=== PATIENT | male | born 1995 | race Caucasian/White ===

== ENCOUNTER 2016-05-31 13:57 | Emergency (ER) | payer BC, OTHER ==
[~2016-05-31] VITALS: Ht 175.3 cm; Wt 91.0 kg
[~2016-05-31 13:57] MED LIST: LAMICTAL100 MG PO; SEROQUEL200 MG PO; SERTRALINE HCL100 MG PO; TESTONE CI200 MG/1 M IM
[2016-05-31 15:20] LABS: HEMATOCRIT 41.9 % (38.0-50.0); MCH 28.6 PG (29.0-34.0); MCHC 33.4 G/DL (30.0-36.0); MCV 85.7 FL (86-99); MEAN PLAT.VOLUME 11.9 uM^3 (9.0-12.4); PLATELET COUNT 159 K/uL (156-360); RBC DIS.WIDTH-CV 13.8 % (11.8-14.6); RBC DIS.WIDTH-SD 43.3 % (39-53); RED BLOOD COUNT 4.89 M/uL (4.00-5.50)
[2016-05-31 15:23] LABS: ADD MIUA? NO; BILIRUBIN NEGATIVE; BLOOD NEGATIVE; COLOR YELLOW ((YELLOW)); GLUCOSE (STRIP) NEGATIVE; KETONES 5; LEUKOCYTES NEGATIVE; NITRITE NEGATIVE; PROTEIN (STRIP) NEGATIVE; SPECIFIC GRAVITY 1.017 (1.000-1.030); UROBILINOGEN 0.2 MG/DL (0.2-1.0)
[2016-05-31 15:30] LABS: CHLORIDE 107 mEq/L (99-109); POTASSIUM 3.7 mEq/L (3.7-5.4); SODIUM 139 mEq/L (136-147)
[2016-05-31 15:32] LABS: AMPHETAMINE NEGATIVE (500 ng/mL); BARBITURATES NEGATIVE (200 ng/mL); BENZODIAZEPINES NEGATIVE (150 ng/mL); COCAINE NEGATIVE (150 ng/mL); INTERNAL CONTROLS VALID? YES; METHADONE NEGATIVE (200 ng/mL); METHAMPHETAMINE NEGATIVE (500 ng/mL); OPIATES (MORPHINE) NEGATIVE (100 ng/mL); OXYCODONE NEGATIVE (100 ng/mL); PHENCYCLIDINE NEGATIVE (25 ng/mL); PROPOXYPHENE NEGATIVE (300 ng/mL); THC CANNABINOIDS PRESUMPTIVE POSITIVE (50 ng/mL); TRICYCLIC ANTIDEPRESSANTS NEGATIVE (300 ng/mL)
[2016-05-31 15:33] LABS: ADD MEDTOX COMMENT Y
[2016-05-31 15:33] LABS: GLUCOSE 84 mg/dL (70-99)
[2016-05-31 15:34] LABS: ANION GAP 9 MEQ/L (2-14); TOTAL BILIRUBIN 2.1 mg/dL (0.0-1.0)
[2016-05-31 15:35] LABS: SERUM ETHYL ALCOHOL < 10 mg/dL
[2016-05-31 15:36] LABS: ALKALINE PHOSPHATASE 43 IU/L (3-129); GFR ESTIMATE (CALCULATED) > 59 mL/min/
[2016-05-31 15:37] LABS: UREA NITROGEN (BUN) 9 mg/dL (9-23)
[2016-05-31 16:24] VITALS: BP 128/78
== END 2016-05-31 16:52 | disposition home or self-care (01) ==
LOC: EME 13:57
PROVIDERS: Emergency Medicine
DX: R45.4 Irritability and anger (principal); F12.10 Cannabis abuse, uncomplicated; F33.1 Major depressive disorder, recurrent, moderate; F60.9 Personality disorder, unspecified; F17.200 Nicotine dependence, unspecified, uncomplicated
CPT/HCPCS: 80053; 81003; 84999; 85027; 90837; 99281; 99285; G0480